=== PATIENT | male | born 1960 | race Caucasian/White ===

== ENCOUNTER 2017-06-18 22:39 | Inpatient (IN) | payer BC ==
[2017-06-19 02:49] LABS: ADD MAN DIFF? NO
[2017-06-19 02:52] LABS: BASOPHIL # 0.1 10^3/ul (0.0-0.1); BASOPHILS % 0.6 % (0.0-2.0); EOSINOPHILS # 0.3 10^3/ul (0.0-0.5); EOSINOPHILS % 2.8 % (0.0-7.0); HEMATOCRIT 47.3 % (42.0-52.0); HEMOGLOBIN 15.5 g/dl (14.0-18.0); LYMPHOCYTES # 4.9 10^3/ul (0.8-2.9); LYMPHOCYTES % 52.7 % (15.0-51.0); MEAN CORPUSCULAR HEMOGLOBIN 31.8 pg (29.0-33.0); MEAN CORPUSCULAR HGB CONC 32.8 g/dl (32.0-37.0); MEAN CORPUSCULAR VOLUME 97.1 fl (82.0-101.0); MEAN PLATELET VOLUME 10.2 fl (7.4-10.4); MONOCYTE # 0.6 10^3/ul (0.3-0.9); MONOCYTES % 6.4 % (0.0-11.0); NEUTROPHIL # 3.5 10^3/ul (1.6-7.5); NEUTROPHILS % 37.3 % (39.0-77.0); PLATELET COUNT 270 10^3/UL (140-415); RED BLOOD COUNT 4.87 10^6/ul (4.70-6.10); RED CELL DISTRIBUTION WIDTH 12.4 % (11.5-14.5)
[2017-06-19 02:52] LABS: WHITE BLOOD COUNT 9.3 10^3/ul (4.8-10.8)
[2017-06-19 03:22] LABS: ANION GAP 18 (8-16); BLOOD UREA NITROGEN 14 mg/dl (7-20); CALCIUM 9.9 mg/dl (8.4-10.2); CARBON DIOXIDE 29 mmol/L (21-31); CHLORIDE 101 mmol/L (97-110); CREATININE 0.76 mg/dl (0.61-1.24); GLUCOSE 103 mg/dl (70-220); POTASSIUM 3.9 mmol/L (3.5-5.1); SODIUM 144 mmol/L (135-144)
[2017-06-19] MEDS: ONDANSETRON 4 MG INJ IV (03:29)
[2017-06-19] MEDS: morphine 4 MG/ML VIAL IV (03:29)
[2017-06-19 03:41] LABS: TROPONIN-I < 0.012 ng/ml (0.00-0.12)
[2017-06-19] MEDS ORDERED: ONDANSETRON 4 MG INJ IV (06:00)
[2017-06-19] MEDS ORDERED: ACETAMINOPHEN 325 MG TAB PO ×2 (06:00→06:30)
[2017-06-19] MEDS ORDERED: morphine 2 MG INJ IV (06:30)
[2017-06-19] MEDS ORDERED: NITROGLYCERIN (SL) 0.4 MG TAB SL (06:30)
[2017-06-19] MEDS ORDERED: NACL 0.9% 3 ML SYG IV (06:30)
[2017-06-19] MEDS ORDERED: ONDANSETRON 4 MG TAB PO (06:30)
[2017-06-19 08:49] LABS: CREATINE KINASE 49 IU/L (23-200)
[2017-06-19 08:52] LABS: MAGNESIUM 1.8 mg/dl (1.7-2.5)
[2017-06-19 08:52] LABS: CHOL/HDL RATIO 3.7 RATIO; CHOLESTEROL 161 mg/dl (100-200); HDL CHOLESTEROL 43 mg/dl (30-78); LDL CHOLESTEROL,CALCULATED 85 mg/dl; TRIGLYCERIDES 164 mg/dl (0-149)
[2017-06-19] MEDS: ENALAPRIL 10 MG TAB PO (09:00)
[2017-06-19] MEDS: ASPIRIN (EC) 81 MG TAB PO (09:00)
[2017-06-19 09:01] LABS: CK INDEX 1.8
[2017-06-19 09:02] LABS: CK-MB 0.87 ng/ml (0.0-2.4); TROPONIN-I < 0.012 ng/ml (0.00-0.12)
[2017-06-19 09:36] LABS: HEMOGLOBIN A1C 6.5 % (0-5.9)
[2017-06-19] MEDS: IOHEXOL 300MG/ML 150 ML BTL (15:12)
[2017-06-19] MEDS: IOHEXOL 100 ML (15:45)
[2017-06-19] MEDS: SOD CHLORIDE 0.9% 100 ML (15:46)
[2017-06-19 15:50] LABS: CREATINE KINASE 42 IU/L (23-200)
[2017-06-19 16:03] LABS: CK INDEX 1.3
[2017-06-19 16:07] LABS: CK-MB 0.54 ng/ml (0.0-2.4); TROPONIN-I < 0.012 ng/ml (0.00-0.12)
[2017-06-19] MEDS: ATORVASTATIN 40 MG TAB PO (21:36)
[2017-06-20 06:00] LABS: ADD MAN DIFF? NO
[2017-06-20 06:11] LABS: BASOPHIL # 0.1 10^3/ul (0.0-0.1); BASOPHILS % 0.8 % (0.0-2.0); EOSINOPHILS # 0.3 10^3/ul (0.0-0.5); EOSINOPHILS % 3.1 % (0.0-7.0); HEMATOCRIT 42.8 % (42.0-52.0); HEMOGLOBIN 14.2 g/dl (14.0-18.0); LYMPHOCYTES # 3.7 10^3/ul (0.8-2.9); LYMPHOCYTES % 43.5 % (15.0-51.0); MEAN CORPUSCULAR HEMOGLOBIN 31.9 pg (29.0-33.0); MEAN CORPUSCULAR HGB CONC 33.2 g/dl (32.0-37.0); MEAN CORPUSCULAR VOLUME 96.2 fl (82.0-101.0); MEAN PLATELET VOLUME 10.2 fl (7.4-10.4); MONOCYTE # 0.6 10^3/ul (0.3-0.9); MONOCYTES % 7.2 % (0.0-11.0); NEUTROPHIL # 3.8 10^3/ul (1.6-7.5); NEUTROPHILS % 45.2 % (39.0-77.0); PLATELET COUNT 247 10^3/UL (140-415); RED BLOOD COUNT 4.45 10^6/ul (4.70-6.10); RED CELL DISTRIBUTION WIDTH 12.4 % (11.5-14.5)
[2017-06-20 06:11] LABS: WHITE BLOOD COUNT 8.5 10^3/ul (4.8-10.8)
[2017-06-20 06:33] LABS: ALANINE AMINOTRANSFERASE 48 IU/L (13-69); ALBUMIN/GLOBULIN RATIO 1.53; ALKALINE PHOSPHATASE 56 IU/L (42-121); ANION GAP 14 (8-16); ASPARTATE AMINO TRANSFERASE 25 IU/L (15-46); BILIRUBIN,INDIRECT 0.1 mg/dl (0-1.1); BILIRUBIN,TOTAL 0.1 mg/dl (0.2-1.3); BLOOD UREA NITROGEN 10 mg/dl (7-20); CALCIUM 9.3 mg/dl (8.4-10.2); CARBON DIOXIDE 30 mmol/L (21-31); CHLORIDE 104 mmol/L (97-110); CREATININE 0.83 mg/dl (0.61-1.24); GLUCOSE 130 mg/dl (70-220); POTASSIUM 4.1 mmol/L (3.5-5.1); SODIUM 144 mmol/L (135-144); TOTAL PROTEIN 6.6 g/dl (6.1-8.1)
[2017-06-20] MEDS: ENALAPRIL 10 MG TAB PO (10:05)
[2017-06-20] MEDS: ASPIRIN (EC) 81 MG TAB PO (10:05)
[2017-06-20 14:10] LABS: LIPASE 305 U/L (23-300)
== END 2017-06-20 17:50 | disposition home or self-care (01) | DRG 440 ==
LOC: MS3 06-19 05:33 → E/R 22:39 → MS3 06-19 19:15
DX: K85.90 Acute pancreatitis without necrosis or infection, unspecified (principal); I10 Essential (primary) hypertension; R07.89 Other chest pain; E11.9 Type 2 diabetes mellitus without complications; E78.5 Hyperlipidemia, unspecified; F17.200 Nicotine dependence, unspecified, uncomplicated; E66.9 Obesity, unspecified; Z68.30 Body mass index [BMI] 30.0-30.9, adult
CPT/HCPCS: 36415; 71045; 71275; 76705; 80048; 80053; 80061; 82550; 82553; 83036; 83690; 83735; 84443; 84484; 85025; 93005; 93306; 96374; 96375; 99285-25